=== PATIENT | male | born 1970 | race Caucasian/White ===

== ENCOUNTER 2022-04-12 11:54 | Emergency (ER) | payer BC ==
[~2022-04-12] VITALS: Ht 175.2 cm; Wt 95.3 kg
== END 2022-04-12 13:31 | disposition home or self-care (01) ==
LOC: ED 11:54
DX: S93.401A Sprain of unspecified ligament of right ankle, initial encounter (principal); Z88.0 Allergy status to penicillin; X50.1XXA Overexertion from prolonged static or awkward postures, initial encounter; Y93.89 Activity, other specified; Y92.89 Other specified places as the place of occurrence of the external cause; Y99.8 Other external cause status